=== PATIENT | male | born 1985 | race Caucasian/White ===

== ENCOUNTER 2016-09-18 23:03 | Emergency (ER) | payer MEDICAID, OTHER ==
[~2016-09-18] VITALS: Ht 170.2 cm; Wt 85.7 kg
[~2016-09-18 23:03] MED LIST: CELE20TA PO
[2016-09-18 23:04] VITALS: BP 177/92
== END 2016-09-19 04:03 | disposition left against medical advice (07) ==
LOC: M ED 09-19 00:34
DX: S61.219A Laceration without foreign body of unspecified finger without damage to nail, initial encounter (principal); Z53.21 Procedure and treatment not carried out due to patient leaving prior to being seen by health care provider